=== PATIENT | female | born 1985 | race African-American/Black ===

== ENCOUNTER 2016-08-09 21:47 | Emergency (ER) | payer OTHER ==
[~2016-08-09] VITALS: Ht 165.1 cm; Wt 104.5 kg
[~2016-08-09 21:47] MED LIST: BUSP10TA2 PO; BUTA1CAP37 PO; FAMO20TA4 PO; FERR-83 PO; GLBR5T PO; LABE100T4 PO; LEVO25TA5 PO; METF10002 PO
[2016-08-09 21:51] VITALS: BP 152/106; PULSE 74; RESP 16; O2SAT 100
--- NOTE | 2016-08-09 23:23 | ED.REPORT ---
HPI-Allergic Reaction Date of Service Aug 09, 2016 ED Provider: Silverio Joseph MD Patient is a 30 year old female with a history of diabetes, hypertension and seasonal allergies who presents to the ED complaining of nasal congestion for the past two days. Associated symptoms include cough with mucus sputum, itchy watery eyes and sinus pressure. She denies wheezing. The patient reports that she has tried multiple over the counter medications with no relief of symptoms. Nursing Notes Stated Complaint: ALLERGIES, CONGESTION Chief Complaint: Allergic Reaction Nursing Notes Reviewed: Yes Allergies: Coded Allergies: Sulfa (Sulfonamide Antibiotics) (Verified Allergy, Unknown, Rash, 08/09/16) facial swelling Scheduled Buspirone (Buspirone) 10 Mg Tablet 10 MG PO BID Cetirizine HCl (All Day Allergy) 10 Mg Tab.chew 10 MG PO DAILY Famotidine (Famotidine) 20 Mg Tablet 20 MG PO BID Ferrous Sulfate (Ferrous Sulfate) 325 Mg Tablet 325 MG PO BID Fluticasone Furoate (Flonase Sensimist) 27.5 Mcg/Actuation [place].susp 1 SPRAY NS BID Glyburide (Glyburide) 5 Mg Tab 7.5 MG PO DAILYAC Labetalol (Labetalol) 100 Mg Tablet 100 MG PO BID Levothyroxine (Levothyroxine) 25 Mcg Tablet 25 MCG PO DAILY Metformin (Metformin) 1,000 Mg Tablet 1,000 MG PO BIDWM Naphazoline HCl/Pheniramine (Allergy Eye Drops) 0.025 %-0.3 % Drops 1 DROP BOTH_ EYES BID Scheduled PRN Butalbital/Acetamin/Caff 50-300-40 mg (Butalbital/Acetamin/Caff 50-300-40 mg) 1 Each Capsule 1 EACH PO Q6 PRN PRN HEADACHE General Time Seen by : 23:22 Chief Complaint Other (nasal congestion) Hx Obtained From: Patient Arrived By: Walk-in Onset Occurred: 2 days ago Symptom Duration: Since onset Associated with: Denies: Wheezing Similar Sx Previous: Yes Past Medical History Past Medical History seasonal allergies Reports: Diabetes mellitus, Hypertension Past Surgical History x4 Tubal ligation Family History Reports: Diabetes mellitus Smoking History Never Smoker Social History Alcohol Use: "Social" Drug Use: THC Occupation lives with family, on line school for [employer] Review of Systems Constitutional: Denies: Fever Eyes: Reports: Redness bilateral Ears / Nose / Throat: Reports: Nasal congestion, Sinus problem Respiratory: Reports: Prod cough, clear, Denies: Shortness of breath, Wheezing Allergy / Immune: Reports: Allergic reaction, Itching (eyes), Rhinorrhea Complete sys rev & neg: except as marked. Physical Exam Initial Vital Signs Vital Signs (First) Date Time Temp Pulse Resp B/P Pulse Ox O2 Delivery O2 Flow Rate FiO2 08/09/16 21:51 36.5 74 16 152/106 100 Room Air Initial VS: Reviewed General/Constitutional: Awake, Alert Respiratory / Chest: Atraumatic, Breath sounds NL, Breath sounds = bilat, No respiratory distress slight bronchospastic cough Cardiovascular: Heart rate NL, Regular rhythm, Heart sounds NL Skin: Atraumatic, Color NL, No rash, Warm, Dry Head / Eyes: Atraumatic, Normocephalic, PERRL, EOMI NOSE: right nostril swollen, almost fully closed with clear mucus drainage left nostril also swollen but not as closed as the right Neurologic: Oriented X3, Speech NL, No motor deficits, No sensory deficits Neck: Atraumatic, Supple, Full range of motion Upper Extremity / MS: Atraumatic, Full range of motion Lower Extremity / Pelvis / MS: Atraumatic, Full range of motion Psychiatric: Affect NL, Mood NL Re-Eval/Medical Decision Med Decision/Clinical Course 30-year-old female with diabetes and seasonal nasal allergies presents unable sleep just due to congestion. She has been using Afrin without enough relief. Benadryl being taken but no other [id number] remedies. No other significant pathology but clearly does have some bronchospasm associated with her postnasal drip and upper airway challenge. Discharged with albuterol for cough, Flonase for her nose, and Zyrtec daily with when necessary Benadryl additional. Afrin use discouraged. Discharged in stable condition. Re-Evaluation/Progress : Time of Eval: 23:25 Re-Evaluation/Progress Note: Discussed plan for treatment and discharge during initial interview. The patient understands and agrees to the plan for discharge. All questions were addressed. Counseled Regarding: Diagnosis, Need for follow-up, When/why to return to ED Discharge & Departure Primary Impression: Seasonal allergic rhinitis Allergic rhinitis trigger: unspecified Qualified Code: J30.2 - Other seasonal allergic rhinitis Disposition: Home Discharge Condition All VS Reviewed: Yes Condition: Stable Additional Instructions: Follow-up with your doctor in the office. Begin zyrtec daily. You may still use Benadryl at night to aid in sleeping. Begin albuterol puffer two puffs every 4-6 hours with spacer if needed for cough. Begin Naphcon-A drops twice daily. Do Not continue the Afrin. Began Flonase one significant side twice daily. Referrals: Anjali Denny MD (PCP) Scribe Attestation Portions of this note were transcribed by Argelia Jules. I, Dr. Joseph personally performed the history, physical exam and medical decision-making; I reviewed and confirmed the accuracy of the information in the transcribed note. Signed by: John Bañuelos, 08/09/16 and [id number] copies to: Anjali Denny MD, Christopher W MD Aug 09, 2016 23:23 Barbara Jules Aug 09, 2016 23:31
[2016-08-09] MEDS ORDERED: _Proair 200 Puff/8.5 GM Inhaler INHALATION PRN (23:30)
[2016-08-09] MEDS ORDERED: Dexamethasone 20 mg/2 mL Oral Solution PO ONE (23:30)
[2016-08-09] MEDS ORDERED: FLUT9.9S16 NS (23:35)
[2016-08-09] MEDS ORDERED: NAPH15DR63 BOTH_EYES (23:35)
[2016-08-09] MEDS ORDERED: CETI10TA27 PO (23:35)
[2016-08-09 23:46] VITALS: BP 152/106; PULSE 74; RESP 16; O2SAT 100
== END 2016-08-09 23:46 | disposition home or self-care (01) ==
LOC: SED 21:47
DX: J30.2 Other seasonal allergic rhinitis (principal); E11.9 Type 2 diabetes mellitus without complications; I10 Essential (primary) hypertension; F12.10 Cannabis abuse, uncomplicated; E03.9 Hypothyroidism, unspecified; Z79.84 Long term (current) use of oral hypoglycemic drugs; Z88.2 Allergy status to sulfonamides